=== PATIENT | male | born 1940 | race Caucasian/White ===

== ENCOUNTER 2025-02-05 20:29 | Inpatient (IN) | payer BC ==
[~2025-02-05] VITALS: Ht 177.8 cm; Wt 73.0 kg
[2025-02-05 20:52] LABS: BASOPHILS # (AUTO) 0.1 X10'3 (0-0.2); BASOPHILS % (AUTO) 0.9 % (0-1); EOSINOPHILS # (AUTO) 0.1 X10'3 (0-0.9); EOSINOPHILS % (AUTO) 0.7 % (0-6); HEMATOCRIT 31.5 % (42.0-52.0); HEMOGLOBIN 10.6 g/dl (14.0-17.9); LYMPHOCYTES # (AUTO) 1.4 X10'3 (1.1-4.8); LYMPHOCYTES % (AUTO) 9.6 % (21-51); MEAN CORPUSCULAR HEMOGLOBIN 30.9 PG (27.0-31.0); MEAN CORPUSCULAR HGB CONC 33.7 g/dL (33.0-36.5); MEAN CORPUSCULAR VOLUME 91.7 FL (78-98); MEAN PLATELET VOLUME 8.1 FL (7.4-10.4); MONOCYTES # (AUTO) 1.3 X10'3 (0-0.9); MONOCYTES % (AUTO) 9.2 % (2-12); NEUTROPHILS # (AUTO) 11.2 X10'3 (1.8-7.7); NEUTROPHILS % (AUTO) 79.6 % (42-75); PLATELET COUNT 296 X10'3 (140-440); RED BLOOD COUNT 3.44 X10'6 (4.70-6.10); RED CELL DISTRIBUTION WIDTH 19.1 % (11.5-14.5); WHITE BLOOD COUNT 14.1 X10'3 (4.5-11.0)
[2025-02-05 21:01] LABS: ALANINE AMINOTRANSFERASE 16 U/L (12-78); ALBUMIN 3.5 G/DL (3.4-5.0); ALBUMIN/GLOBULIN RATIO 0.9 (1.1-1.5); ALKALINE PHOSPHATASE 111 IU/L (46-116); ANION GAP 9 (8-16); ASPARTATE AMINO TRANSFERASE 13 U/L (10-37); BILIRUBIN,TOTAL 1.1 MG/DL (0.1-1.0); BLOOD UREA NITROGEN 15 MG/DL (7-18); BUN/CREATININE RATIO 18.5 (10.0-20.0); CALCIUM 8.7 MG/DL (8.5-10.1); CHLORIDE 102 MMOL/L (99-107); CREATININE 0.81 MG/DL (0.60-1.10); GLUCOSE 136 MG/DL (70-104); POTASSIUM 4.2 MMOL/L (3.5-5.1); SODIUM 139 MMOL/L (135-145); TOTAL CARBON DIOXIDE 28.2 MMOL/L (24-32); TOTAL PROTEIN 7.3 G/DL (6.4-8.2); eCRCL 70 ML/MIN; eGFR > 90 ML/MIN
[2025-02-05 21:08] LABS: PRO BRAIN NATRIURETIC PEPTIDE 1409 PG/ML (0-450)
[2025-02-05 21:11] LABS: ANISOCYTOSIS 3+; MICROCYTOSIS 1+; PLATELET ESTIMATE DECREASED; POIKILOCYTOSIS 1+
--- NOTE | 2025-02-05 22:03 | RADIOLOGY REPORT ---
CHEST RADIOGRAPH Indication: CP Technique: Single frontal view of the chest was obtained Comparison: None FINDINGS: Lines and Tubes: None Lungs: No focal consolidation. Pleura: No effusion. No pneumothorax. Cardiomediastinal contours: Unremarkable Bones: No acute osseous abnormality. IMPRESSION: No acute cardiopulmonary disease.
[2025-02-05] MEDS ORDERED: AMLO10TA13 PO (22:15)
[2025-02-05] MEDS ORDERED: METF-438 PO (22:15)
[2025-02-05] MEDS ORDERED: ATOR40TA72 PO (22:15)
[2025-02-05] MEDS ORDERED: LINA5TAB4 PO (22:54)
[2025-02-05] MEDS ORDERED: GLIM4TAB7 PO (22:56)
[2025-02-05] MEDS ORDERED: ASPI-1265 PO (22:57)
[2025-02-05] MEDS ORDERED: AZIL1TAB3 PO (22:58)
[2025-02-05] MEDS ORDERED: NEBI10TA10 PO (22:59)
--- NOTE | 2025-02-06 01:25 | Physician Documentation ---
History of Present Illness ~ Chief Complaint: See Chief Complaint Stated Complaint: TRANSFER Time Seen by MD: 01:24 Mode of Arrival: EMS HPI Patient presents to the emergency room for evaluation of generalized weakness. He was transferred from [facility] where he was found to be dipping into the low 30s regarding his heart rate and it was felt that this was the caus e for his generalized weakness. Dr. Lima, gas plant technician, at [facility] recommended discontinuing the beta-jasmyne however he has been off his beta- jasmyne for this past week secondary to not feeling his medications are doing any good therefore she recommended to be transferred to our facility for possible pacemaker placement. He does have a history of atrial fibrillation but it was not on blood thinners as he has a watchman device. 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 Patient has a history of prior stroke with residual but he feels like he had may have gotten worse the past few days and this is why CTA was performed. Lexiscan performed in September of 2023 was unremarkable and showed an ejection fraction of 74% Medication Reconciliation Allergies: Coded Allergies: No Known Allergies (Unverified , 02/05/25) Scheduled Amlodipine Besylate (Amlodipine Besylate), 1 TAB PO DAILY, (Reported) Aspirin (Aspirin), 1 TAB PO DAILY, (Reported) Atorvastatin Calcium (Atorvastatin Calcium), 1 TAB PO DAILY, (Reported) Azilsartan Med/Chlorthalidone (Edarbyclor 40-12.5 mg Tablet), 1 TAB PO DAILY, (Reported) Glimepiride* (Amaryl*), 2 TAB PO DAILY, (Reported) Linagliptin (Tradjenta), 1 TAB PO DAILY, (Reported) Metformin HCl (Metformin HCl), 1 TAB PO BID, (Reported) Nebivolol HCl (Bystolic), 1 TAB PO DAILY, (Reported) Review of Systems ROS All review of systems negative except as per HPI Physical Exam Vital Signs: Temperature: 98.9, Source: Oral, Heart Rate: 63, Respiratory Rate: 14, BP: 187/68, Pulse Oximetry: 96, Weight: 73.000 Oxygen Flow Rate: 0 Physical Exam General: Patient is awake, alert, oriented x4 in no acute distress and well appearing.~ Head: Normocephalic and atraumatic. Eyes: Conjunctival normal. EOMI. PERRL. ENT: Mucous membranes moist. Neck: Supple, trachea is midline. Chest: Clear to auscultation bilaterally without rales, rhonchi, or wheezes. There is no accessory muscle use or retractions. Cardiac: Heart rate 70 and regular without murmurs, gallops, or rubs. Abd: Soft, nondistended, nontender, with normoactive bowel sounds. No guarding, rebound, or rigidity. Progress Results/Orders Results/Orders Orders - DARIN BRADLEY MD Chest,Single View (02/05/25 20:34) Monitor (02/05/25 20:34) Saline Lock (02/05/25 20:34) Oxygen (02/05/25 20:34) Electrocardiogram (02/05/25 20:34) Page Hospitalist (02/06/25 01:38) Fill Out Med Reconciliation (02/06/25 01:38) Completed Orders - DARIN BRADLEY MD Chest,Single View (02/05/25 20:34) Cbc/Diff (02/05/25 20:34) PBNP (02/05/25 20:34) CMP (02/05/25 20:34) Hs Troponin I W Calculations (02/05/25 20:34) Hs Troponin I W Calculations (02/05/25 22:34) Hs Troponin I W Calculations (02/05/25 23:34) Vital Signs 02/05/25 02/05/25 02/05/25 02/05/25 20:46 21:27 22:20 22:47 Temp 98.9 Pulse 62 66 63 Resp 16 16 14 B/P (MAP) 206/76 199/70 (113) 187/68 (107) Pulse Ox 95 98 96 O2 Flow Rate 0 0 0 02/06/25 01:00 Pulse 63 Resp 18 B/P (MAP) 178/67 (104) Pulse Ox 96 O2 Flow Rate 0 Laboratory Tests Test 02/05/25 20:41 02/05/25 22:35 02/05/25 23:26 White Blood Count 14.1 H Red Blood Count 3.44 L Hemoglobin 10.6 L Hematocrit 31.5 L Mean Corpuscular Volume 91.7 Mean Corpuscular Hemoglobin 30.9 Mean Corpuscular Hemoglobin Concent 33.7 Red Cell Distribution Width 19.1 H Platelet Count 296 Mean Platelet Volume 8.1 Neutrophils (%) (Auto) 79.6 H Lymphocytes (%) (Auto) 9.6 L Monocytes (%) (Auto) 9.2 Eosinophils (%) (Auto) 0.7 Basophils (%) (Auto) 0.9 Neutrophils # (Auto) 11.2 H Lymphocytes # (Auto) 1.4 Monocytes # (Auto) 1.3 H Eosinophils # (Auto) 0.1 Basophils # (Auto) 0.1 CBC Comment Platelet Estimate Decreased Red Blood Cell Morphology Perf Poikilocytosis 1+ Basophilic Stippling Anisocytosis 3+ Microcytosis 1+ Sodium Level 139 Potassium Level 4.2 Chloride Level 102 Carbon Dioxide Level 28.2 Anion Gap 9 Blood Urea Nitrogen 15 Creatinine 0.81 Estimated GFR/1.73 m2 > 90 BUN/Creatinine Ratio 18.5 Glucose Level 136 H Calcium Level 8.7 Total Bilirubin 1.1 H Aspartate Amino Transf (AST/SGOT) 13 Alanine Aminotransferase (ALT/SGPT) 16 Alkaline Phosphatase 111 Troponin I High Sensitivity 103 *H 86 *H 88 *H Pro-B-Type Natriuretic Peptide 1409 H Total Protein 7.3 Albumin 3.5 Globulin 3.8 Albumin/Globulin Ratio 0.9 L Chemistry Comments Troponin I High Sens Percent Delta 16 2 Troponin I Hi Sens Absolute Change -17 2 EKG/XRAY/CT/US/VASC/MRI EKG : Additional Comment EKG interpreted by myself shows time of 2035, rate 65, junctional rhythm, no ST changes Chest X-Ray : Additional Comments Exam: CHEST,SINGLE VIEW CHEST RADIOGRAPH Indication: CP Technique: Single frontal view of the chest was obtained Comparison: None FINDINGS: Lines and Tubes: None Lungs: No focal consolidation. Pleura: No effusion. No pneumothorax. Cardiomediastinal contours: Unremarkable Bones: No acute osseous abnormality. IMPRESSION: No acute cardiopulmonary disease. Medical Decision Making Findings Patient presents to the emergency room for evaluation of possible pacemaker placement sent from [facility]. Differentials include but are not limited to first-degree block, second-degree block, third-degree block, cardiac arrhythmia, medication side effect therefore emergent labs ordered. Slight elevation of patient's troponin however he denies any chest pain. We will admit for further investigation and possible pacemaker placement with cardiologic consultation. Departure Admitted to Inpatient Unit: yes, to hospitalist Impression: Primary Impression: Symptomatic bradycardia Condition: Guarded Referrals: NO PRIMARY CARE PROVIDER (PCP) Critical Care Note Total Time (mins): 45 Critical Care Note The very real possibility of a deterioration of this patient's condition required the highest level of my preparedness for sudden, emergent intervention. I provided critical care services, which included medication orders, frequent reevaluations of the patient's condition and response to treatment, ordering and reviewing test results, and discussing the case with various consultants. Excludes time spent performing separately billable procedures. The critical care time associated with the care of the patient was 45 minutes not counting procedures Signature Scribe Signature: No scribe Attestation: The note accurately reflects work and decisions made by me.Darin Bradley MD 02/06/25 01:37 DARIN BRADLEY MD February 06, 2025 01:25
[2025-02-06] MEDS ORDERED: potassium Cl 20 mEq SR tablet PO PRN ×2 (02:45)
[2025-02-06] MEDS ORDERED: potassium Cl 40MEQ/1/2NS 520ml 520 ML IV PRN (02:45)
[2025-02-06] MEDS ORDERED: mag hydrox/Alum hydrox/simeth 30ml oral suspension PO PRN (02:45)
[2025-02-06] MEDS ORDERED: ondansetron/PF 4mg/2ml inj IV PRN (02:45)
[2025-02-06] MEDS ORDERED: acetaminophen 325mg tablet PO PRN (02:45)
[2025-02-06] MEDS ORDERED: magnesium Cl slow-release 64mg tablet PO PRN (02:45)
[2025-02-06] MEDS ORDERED: magnesium sulf-water 4G/100mL 100 ML IV PRN (02:45)
[2025-02-06] MEDS ORDERED: magnesium hydroxide 30ml (MOM) UD suspension PO PRN (02:45)
[2025-02-06] MEDS ORDERED: magnesium sulf-water 2g/50mL 50 ML IV PRN (02:45)
--- NOTE | 2025-02-06 02:58 | HISTORY AND PHYSICAL-Residence ---
History & Physical Providers to CC Resident Creating Document: ALISIA BAXTER, RES ~ History of Present Illness Reason for Admit\Complaint: Bradycardia History of Present Illness The patient is an 84-year-old male with past medical history of CAD, stroke, AFib with Watchman, hypertension, diabetes, hyperlipidemia, was transferred from [facility]. He went to the ED at [facility] for generalized weakness. The patient felt generally weak, lightheaded and dizzy this morning. He had these symptoms for about a week. He did not fall, hit his head or lose consciousness. Denied fevers, cough, chest pain, shortness of breath, palpitations, nausea, vomiting, diarrhea, constipation, abdominal pain, burning micturition. The patient stopped taking his medications around the time the symptoms began as he felt they were not really helping him. He has residual left-sided weakness from TIA/CVA in 2011, 2015 and 2019. But has been feeling increasingly weak on his left side since last three days to a week. 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 The right vertebral artery is dominant and patent with minimal atherosclerotic changes Atherosclerotic changes of arch and cervical carotids No evidence of significant stenosis or vessel occlusion CT head without contrast: Cerebral volume loss with white matter microvascular changes seen with aging and old right thalamic lacunar infarct. No acute intracranial abnormality. X-ray chest: No focal acute process in the lung mei. Carotid ultrasound, 09/2023: Right ICA less than 50% stenosis and left ICA 50- 79% stenosis Lexiscan, 09/2023: Unremarkable study with calculated EF of 74% Course in the hospital: The EKG showed sinus bradycardia with as low as 32. Normal blood pressure. Initial imaging and lab work done which did not show any acute abnormalities. Crawler Crane Operator, Dr. Lima recommended transfer to [facility] for the requirement of pacemaker placement. Allergies: Coded Allergies: No Known Allergies (Unverified , 02/05/25) Home Medications Home Medications Active Reported Bystolic (Nebivolol HCl) 10 Mg Tablet 1 Tab PO DAILY 30 Days Edarbyclor 40-12.5 mg Tablet (Azilsartan Med/Chlorthalidone) 40 Mg-12.5 Mg Tablet 1 Tab PO DAILY 30 Days Aspirin 81 Mg Tab.chew 1 Tab PO DAILY 30 Days Amaryl* (Glimepiride) 4 Mg Tablet 2 Tab PO DAILY 30 Days Tradjenta (Linagliptin) 5 Mg Tablet 1 Tab PO DAILY Amlodipine Besylate 10 Mg Tablet 1 Tab PO DAILY Atorvastatin Calcium 40 Mg Tablet 1 Tab PO DAILY Metformin HCl 1,000 Mg Tablet 1 Tab PO BID Past Medical History Past Medical History Atrial fibrillation s/p watchman procedure (2021) because of recurrent GI bleed Hypertension Diabetes mellitus History of TIA/CVA in 2011, 2015 and 2019 CAD s/p stenting in 2012 Past Surgical History Surgical History Comment Watchman procedure, 08/2022 TURP 2019 Cardiac catheterization with stenting of ROENTGENOLOGY TEACHER in 2012 Past Social History Social History Comment Patient lives in his house with his girlfriend. Ambulates using a cane. Quit smoking 40 years ago. Occasionally drinks alcohol. Denies recreational drug abuse. ROS ROS Reviewed in full. Negative except for pertinent positives in HPI. Exam Vitals: Vital Signs Date Time Temp Pulse Resp B/P (MAP) Pulse Ox O2 Delivery O2 Flow Rate FiO2 02/06/25 01:00 63 18 178/67 (104) 96 0 02/05/25 20:46 98.9 General: Elderly male, alert and oriented, tremulous, not in acute distress Head: Normocephalic with an atraumatic Eyes: Pupils- 3mm, reacting to light, conjunctiva- anicteric Nose and throat: No polyps, septum- normal, no mucosal ulcers Neck: Supple, no lymphadenopathy, no carotid bruit Respiratory: No use of accessory muscles of respiration, Bilateral normal vesiscular breath sounds heard. No wheeze, rhochi or creps Cardiac: S1-S2 heard, rhythm regular, no gallop/murmur Abdomen: non distended, no tenderness, no organomegaly, bowel sounds - heard Extremities: no clubbing, no pedal edema, no deformities, peripheral pulses - 2+ Skin: warm and dry, no rash, no purpura Diagnostic Data Last Recorded Lab Results: 02/05/25204002/05/252040 Advance Care Planning Advanced Care plannin - 30 Minutes (Patient requested full code) Additional Plan An 84-year-old male with past medical history of hypertension, diabetes mellitus, CAD, stroke, AFib, hyperlipidemia, was transferred from [facility] for requirement of pacemaker placement. Plan: Symptomatic bradycardia As per reports, his heart rate at [facility] was in 30s. EKG here shows junctional rhythm with heart rate in 60s. Continue telemetry monitoring. Hold home beta jasmyne. Consider cardiology consultation for possible pacemaker placement. Follow up with urine toxicology screen. TSH within normal limits. Left-sided weakness CT head, CTA head and neck did not show any acute abnormalities. Fall precautions. Neuro checks q.4h. Follow up with MRI head. Continue aspirin and atorvastatin. Hypertensive emergency Medication noncompliance Blood pressure at admission was 206/76 mmHg. Continue home amlodipine 10 mg daily, azilsartan/chlorthalidone 40/12.5 mg daily. Hold nebivolol 10 mg daily. Hyperlipidemia Continue atorvastatin 40 mg daily. History of stroke History of CAD s/p ROENTGENOLOGY TEACHER stenting Continue aspirin 81 mg daily. Diabetes mellitus Follow up with HB A1c. Starting the patient on hyperglycemia/hypoglycemia protocol. Paroxysmal atrial fibrillation Hold nebivolol. Currently in junctional rhythm. Patient underwent watchman's procedure because of recurrent GI bleeds. Chronic anemia HB 10.6 which is chronic. Follow up with iron studies. Code Status: Full code as requested by patient DVT Prophylaxis: SCDs Analgesia/Sedation: Acetaminophen Lines/Tubes: PIV Nutrition: NPO for possible pacemaker placement PT: Ordered Disposition: We will admit the patient into medical hernandez. Continue telemetry monitoring. Cardiology consultation pending. Alisia Baxter MD Internal Medicine Resident PGY-1 [facility] Addendum #1 Neuro: The pt has a history of CVA -Monitor for delirium #2 CV: The pt has a history of CAD, atrial fibrillation with Watchman device, bradycardia, and hypertension. - restart norvasc 5 -Continue ASA - Lipitor Pt with intermittent bradycardia, obtain EKG to evaluate for heart block, sinus corine, or junctional rhythm -Monitor for hemodynamic instability; keep atropine and consider pacing if unstable -Hold rate-slowing agents due to bradycardia -For HTN, continue home BP medications if hemodynamically stable afib, CHADS-2 Score, 5 patient has Watchman device , HR 60s #3 Pulm: -Promote incentive spirometry use -Maintain O2 saturation >92% #4 GI: -Advance diet as tolerated with primary approval #5 Renal: -Monitor for acute kidney injury (RIYA) -Replete electrolytes as needed #6 ID: -Monitor for signs of infection #7 Endo: The pt has a history of diabetes and hyperlipidemia. -Start insulin sliding scale to maintain serum glucose 150-180 mg/dL -Continue Lantus and Lispro for diabetes management -Continue Lipitor; monitor lipid profile for hyperlipidemia management #8 Heme/Onc: -Monitor for bleeding and blood clots -Maintain Hgb >7 and platelets >10 #9 PPx: -Consider chemical DVT prophylaxis I spent a total of greater than 60 minutes formulating critical care for this patient today. I saw this patient and completed a full visual exam via audio- visual HIPAA compliant technology. Date of Service: February 06, 2025 Billing Provider: LUI PEREZ MD, SOWMYA MANJARI, [facility] February 06, 2025 02:58 LUI PEREZ MD February 06, 2025 07:15
[2025-02-06 03:16] LABS: MAGNESIUM 1.5 MG/DL (1.5-2.4)
[2025-02-06 03:17] LABS: INR 1.1 INR
[2025-02-06 03:18] LABS: BILIRUBIN,URINE NEGATIVE (Neg); CLARITY,URINE CLEAR (Clear); COLOR,URINE YELLOW (Yellow); GLUCOSE, URINE NEGATIVE (Neg); KETONES,URINE NEGATIVE (Neg); LEUKOCYTE ESTERASE ,URINE NEGATIVE (Neg); OCCULT BLOOD,URINE TRACE-INTACT (Neg); PROTEIN,URINE 100 mg/dl (Neg); UROBILINOGEN,URINE 0.2 E.U/dL (0.2-1.0)
[2025-02-06] MEDS: PERFLUTREN PROTEIN-A MICROSPHR (Optison) 0.22 MG/ML 3ML VIAL IV ONE (03:20)
[2025-02-06 03:27] LABS: UA COLLECTION TYPE FOLEY CATH
[2025-02-06 03:28] LABS: HEMOGLOBIN A1C 7.3 % (4.5-6.2)
[2025-02-06 03:29] LABS: BACTERIA,URINE FEW /HPF (Neg); NITRITES, URINE NEGATIVE (Neg); RBC,URINE 0-2 /HPF (0-2); SQUAMOUS EPITHELIAL CELL,UR NONE SEEN /LPF (FEW); WBC,URINE NONE SEEN /HPF (0-4)
[2025-02-06] MEDS ORDERED: dextrose 50%-water 50ml dispensing syringe IV PRN ×2 (03:30)
[2025-02-06] MEDS ORDERED: glucagon, human recombinant 1mg kit SUBCUT PRN (03:30)
[2025-02-06] MEDS ORDERED: DEXTROSE 15 GM of carb/4 tabs (each vial/BOTTLE has 4 tablets) PO PRN ×2 (03:30)
[2025-02-06 03:33] LABS: URINE AMPHETAMINE SCREEN NEGATIVE (Neg); URINE BARBITUATE SCREEN NEGATIVE (Neg); URINE BENZODIAZEPINES SCREEN NEGATIVE (Neg); URINE CANNABINOID SCREEN NEGATIVE (Neg); URINE COCAINE SCREEN NEGATIVE (Neg); URINE METHADONE SCREEN NEGATIVE (Neg); URINE OPIATE SCREEN NEGATIVE (Neg); URINE PHENCYCLIDINE SCREEN NEGATIVE (Neg)
[2025-02-06] MEDS: amLODIPine 5mg tablet PO ONE ×2 (03:56→09:58)
[2025-02-06] MEDS: INSULIN LISPRO 100 UNIT/ML INSULN.PEN MULTI-DOSE SQ SCH ×2 (07:00→09:00)
--- NOTE | 2025-02-06 07:14 | ELECTROCARDIOGRAPH REPORT ---
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 Loco Smart Measurements Intervals [place] Rate: 65 P: 0 [place]: 0 QRS: 71 QRSD: 85 T: 24 QT: 391 QTc: 407 Interpretive Statements Junctional rhythm Abnormal R-wave progression, late transition Baseline wander in lead(s) V1 Electronically Signed On 02-06-2025 8:14:[address] Loco Smart Please click the below link to view image of tracing.
[2025-02-06 08:00] VITALS: BP 183/72; PULSE 66; RESP 16; TEMP 97.6; O2SAT 95
[2025-02-06] MEDS: docusate sod 100mg capsule PO SCH (08:00)
[2025-02-06] MEDS ORDERED: AZILSARTAN MED PO SCH (08:00)
[2025-02-06] MEDS ORDERED: CHLORTHALIDONE PO SCH (08:00)
[2025-02-06] MEDS: K and/or MAG REPLACEMENT MC SCH (08:00)
[2025-02-06] MEDS ORDERED: amLODIPine 5mg tablet PO SCH (08:00)
[2025-02-06 09:49] LABS: % IRON SATURATION 22 % (11-46); IRON 61 UG/DL (53-167); TOTAL IRON BINDING CAPACITY 276 UG/DL (259-388)
[2025-02-06] MEDS: aspirin 81mg tab.chew PO SCH (09:58)
[2025-02-06] MEDS: losartan 50mg tablet PO SCH (09:59)
[2025-02-06] MEDS: atorvastatin 20mg tablet PO SCH (09:59)
[2025-02-06 11:00] VITALS: BP 178/77; PULSE 64; RESP 17; TEMP 97.6; O2SAT 97
[2025-02-06] MEDS: chlorthalidone 25mg tablet PO SCH (11:33)
[2025-02-06] MEDS ORDERED: FLUO10CA65 PO (12:02)
[2025-02-06] MEDS ORDERED: OMEP40CA21 PO (12:02)
[2025-02-06 15:00] VITALS: BP 150/56; PULSE 67; RESP 20; TEMP 97.1; O2SAT 95
[2025-02-06 18:00] VITALS: BP 158/80; PULSE 62; RESP 20; TEMP 97.8; O2SAT 96
[2025-02-06 20:00] VITALS: RESP 20; O2SAT 98
[2025-02-06 22:00] VITALS: BP 154/72; PULSE 65; RESP 22; TEMP 98.2; O2SAT 97
[2025-02-06] MEDS: insulin glargine (Lantus) pen - multi-dose SQ SCH (22:53)
--- NOTE | 2025-02-06 22:59 | RADIOLOGY REPORT ---
PROCEDURE: MR MRI HEAD INDICATION: Left-sided weakness EXAM DATE: 02/06/2025 09:34 PM COMPARISON: CT brain 02/05/25 TECHNIQUE: MRI of the brain without intravenous contrast. FINDINGS: Diffusion weighted images of the brain demonstrate no evidence of acute infarction. There is an old lacunar infarct in the right thalamus and considerable chronic white matter microvasc ular ischemic changes. Mild chronic microvascular ischemic changes also noted in the vijay. There is no evidence of intracranial hemorrhage, extra-axial collection, mass effect, midline shift, herniation or hydrocephalus. Moderate ventricular and sulcal enlargement related to advanced cerebra l volume loss. Visualized paranasal sinuses and mastoid air cells are clear. Orbits appear unremarkable. Soft tissue s and osseous structures are unremarkable. IMPRESSION: No acute intracranial abnormality identified. Considerable chronic microvascular ischemic changes and advanced cerebral volume loss.
[2025-02-07] VITALS (8 sets, daily range): BP systolic 124–155; BP diastolic 64–78; PULSE 33–71; RESP 10–16; TEMP 97.3–98.1; O2SAT 93–96
[2025-02-07 06:20] LABS: BASOPHILS # (AUTO) 0.1 X10'3 (0-0.2); BASOPHILS % (AUTO) 1.6 % (0-1); EOSINOPHILS # (AUTO) 0.2 X10'3 (0-0.9); EOSINOPHILS % (AUTO) 2.2 % (0-6); HEMATOCRIT 31.1 % (42.0-52.0); HEMOGLOBIN 10.7 g/dl (14.0-17.9); LYMPHOCYTES # (AUTO) 1.2 X10'3 (1.1-4.8); MEAN CORPUSCULAR HEMOGLOBIN 31.3 PG (27.0-31.0); MEAN CORPUSCULAR HGB CONC 34.4 g/dL (33.0-36.5); MEAN CORPUSCULAR VOLUME 91.2 FL (78-98); MEAN PLATELET VOLUME 8.2 FL (7.4-10.4); MONOCYTES # (AUTO) 1.2 X10'3 (0-0.9); MONOCYTES % (AUTO) 15.1 % (2-12); NEUTROPHILS # (AUTO) 5.3 X10'3 (1.8-7.7); NEUTROPHILS % (AUTO) 66.1 % (42-75); PLATELET COUNT 289 X10'3 (140-440); RED BLOOD COUNT 3.41 X10'6 (4.70-6.10); RED CELL DISTRIBUTION WIDTH 19.1 % (11.5-14.5)
[2025-02-07 06:38] LABS: ALANINE AMINOTRANSFERASE 12 U/L (12-78); ALBUMIN 3.2 G/DL (3.4-5.0); ALBUMIN/GLOBULIN RATIO 0.9 (1.1-1.5); ALKALINE PHOSPHATASE 104 IU/L (46-116); ANION GAP 7 (8-16); ASPARTATE AMINO TRANSFERASE 16 U/L (10-37); BILIRUBIN,TOTAL 0.9 MG/DL (0.1-1.0); BLOOD UREA NITROGEN 23 MG/DL (7-18); CALCIUM 8.9 MG/DL (8.5-10.1); CHLORIDE 101 MMOL/L (99-107); CHOL/HDL RATIO 2.8 (0.00-4.99); CHOLESTEROL 122 MG/DL (0-200); CREATININE 0.92 MG/DL (0.60-1.10); GLUCOSE 168 MG/DL (70-104); HDL CHOLESTEROL 43 MG/DL (35-60); LDL CHOLESTEROL 69 MG/DL (50-100); MAGNESIUM 1.7 MG/DL (1.5-2.4); POTASSIUM 4.1 MMOL/L (3.5-5.1); SODIUM 137 MMOL/L (135-145); TOTAL CARBON DIOXIDE 28.7 MMOL/L (24-32); TOTAL PROTEIN 6.9 G/DL (6.4-8.2); TRIGLYCERIDES 70 MG/DL (20-135); eCRCL 62 ML/MIN; eGFR 78 ML/MIN
[2025-02-07 09:01] LABS: TOTAL CELLS COUNTED 100
[2025-02-07 09:03] LABS: ANISOCYTOSIS 2+; PLATELET ESTIMATE NORMAL
--- NOTE | 2025-02-07 09:10 | ELECTROCARDIOGRAPH REPORT ---
[facility] Test Date: 2025-02-07 Test Time: 09:09:46 Pat Name: YENNI AVILA Department: [address] Patient ID: [facility]-[id number] Room: [place] [address] A Gender: M Dentist: : 1940 Requested By: JONATHAN EVANS Order Number: [id number] Reading MD: Dr. RHYS Evans Measurements Intervals [place] Rate: 56 P: -77 [place]: 0 QRS: -19 QRSD: 87 T: 48 QT: 503 QTc: 486 Interpretive Statements Sinus or ectopic atrial bradycardia Second deg AVB, Mobitz I (Wenckebach) Consider left ventricular hypertrophy Nonspecific T abnormalities, lateral leads Borderline prolonged QT interval Electronically Signed On 02-07-2025 19:48:[address] RHYS Evans Please click the below link to view image of tracing.
[2025-02-07] MEDS ORDERED: fentaNYL/PF 50MCG/1 ML 2ML syringe ONE (16:12)
[2025-02-07] MEDS ORDERED: LIDOcaine 1% W/epiNEPHrine 1:100,000 20ml vial ONE (16:12)
[2025-02-07] MEDS ORDERED: iohexol 350 MG/ML 50ML vial IV ONE (16:13)
[2025-02-07] MEDS ORDERED: midazolam 1 mg/ML 2ml injection ONE (16:13)
[2025-02-07] MEDS ORDERED: ceFAZolin 1000mg inj ONE (16:13)
--- NOTE | 2025-02-07 17:25 | PROGRESS NOTE- Residence ---
Progress Note - Resident Providers to CC Resident Creating Document: TRISTEN MARTINEZ, EUGENIA CC: MAI CASTILLO MD ~ Antibiotic Timeout Antibiotic Ordered?: No Subjective Patient was examined at bedside today. Patient appears to be more clear in conscious, alert today. Patient's heart rate fell down to 30s and stayed about that range overnight. Patient was proposed the plan of pacemaker placement with the family and the patient made a combined decision to go for it. Objective Vital Signs Date Time Temp Pulse Resp B/P (MAP) Pulse Ox O2 Delivery O2 Flow Rate FiO2 02/07/25 15:00 97.9 57 16 128/65 (86) 96 Room Air 02/07/25 08:25 0.0 Result Diagram: 02/07/25 0556 02/07/25 0556 General: Alert, awake, oriented, not in acute distress HEENT: PERRLA, no icterus, pallor, lymphadenopathy, carotid bruit Respiratory system: Bilateral vesicular breath sounds heard, no adventitious breath sounds CVS: S1-S2 heard, no murmurs/rubs/gallop GI: Soft, nontender, no organomegaly, no guarding/rigidity, bowel sounds present Neuro: Left upper and lower extremity power: 2/5, gait could not be elicited, right upper and lower extremity power: 4/5, no sensory deficits, no bowel/bladder incontinence Extremities: No edema cyanosis clubbing/deformities Skin: Warm and dry Coagulation Studies Laboratory Tests Test 02/06/25 02:59 Prothrombin Time 11.0 SECONDS (9.0-12.0) INR International Normalized Ratio 1.1 INR Coagulation Comments Assessment Assessment An 84-year-old male with past medical history of hypertension, diabetes mellitus, CAD, stroke, AFib, hyperlipidemia, was transferred from [facility] for requirement of pacemaker placement. Plan Plan Symptomatic bradycardia Type I and II Mobitz AV block Cardiology consulted and recommended pacemaker placement Continue telemetry monitoring. Hold home beta jasmyne. Consider cardiology consultation for possible pacemaker placement. U tox negative Mildly elevated troponins probably type 2 IA Troponins downtrending Acute intervention required at this time Acute Left-sided weakness, CVA ruled out Most likely a subjective finding with no underlying etiology MRI head: chronic microvascular ischemic changes and cerebral volume loss Fall precautions. Neuro checks q.4h. Continue aspirin and atorvastatin. Hypertensive emergency Medication noncompliance Continue to monitor white Continue home amlodipine 10 mg daily, azilsartan/chlorthalidone 40/12.5 mg daily. Hold nebivolol 10 mg daily. Hyperlipidemia Continue atorvastatin 40 mg daily. History of stroke, left-sided weakness History of CAD s/p MECHANICAL RELIABILITY ENGINEER stenting Continue aspirin 81 mg daily. Diabetes mellitus A1c: [place] point Low-dose sliding scale insulin Paroxysmal atrial fibrillation Hold nebivolol. Currently bradycardic. Patient underwent watchman's procedure because of recurrent GI bleeds. Normochromic normocytic anemia HB 10.6 Normal ferritin, iron levels Code Status: DNR DVT Prophylaxis: SCDs Nutrition: NPO for possible pacemaker placement Disposition: Continue care in PCU floor, continue to monitor telemetry, pacemaker placement today Tristen Martinez MD Internal Medicine, PGY 1 Date of Service: February 07, 2025 Billing Provider: MAI CASTILLO MD, SIVA, RES February 07, 2025 17:25
[2025-02-07] MEDS ORDERED: diphenhydrAMINE 50 mg/ml inj ONE (17:46)
--- NOTE | 2025-02-07 18:43 | CARDIOLOGY REPORT ---
APPROVED REPORT EXAM: Comprehensive 2D, Doppler, and color-flow Echocardiogram. Patient Location: [facility] Blood Pressure: 179/74 mmHg Heart Rate: 62 bpm Rhythm: NSR Indications Arrhythmia CAD Diabetes Hypertension Watchamn device 2021 Hx stents 2012 Service Writer is BV. Ruth MD. No previous echo 2D Dimensions LA Diam4.6 cm IVSd 1.2 (0.7-1.1cm) LVDd 5.2 cm PWd 1.2 (0.7-1.1cm) IVSs 1.8 (0.8-1.2cm) LVDs 3.4 (2.5-4.0cm) Aortic Root(2D) 3.4 cm PWs 1.5 (0.8-1.2cm) LVOT Diameter 2.19 (1.8-2.4cm) LVEF(%) 63.6 (>50%) IVC 15.91 mmFS (%) 34.8 % SV 81.6 ml CO 5.1 L/min M-Mode Dimensions MV EPSS 1.1 (<0.5cm) Aortic Valve AoV Peak Darshan. 187.4 cm/s AoV VTI 40.1 cm AO Peak GR. 14.0 mmHg AO Mean GR. 8 mmHg LVOT VTI 24.40 cm LVOT Peak Darshan. 117.5 cm/s KHUSHI(VTI)/BSA 2.29 cm2/m2 KHUSHI (VTI) 2.29 cm2 Mitral Valve MV E Velocity 94.9 cm/s MV Peak Gr. 5 mmHg MV DECEL TIME 240 ms MV A Velocity 73.3 cm/s MV PHT 72 ms E/A Ratio 1.3 MVA (PHT) 3.06 cm2 MV KRqg591.2 cm/s TDI Medial E' P. V 6.98 cm/s E/Medial E' 13.6 Tricuspid Valve TR P. Velocity 289 cm/s RAP ESTIMATE 10 mmHg TR Peak Gr. 33 mmHg RVSP 43 mmHg Pulmonary Vein S1 Velocity 33.7 cm/s D2 Velocity 53.9 cm/s PVa Mpevjaxa53.1 cm/s PVa [id number] msec LEFT VENTRICLE LV is normal in size with mild concentric hypertrophy. Overall systolic function is normal. Overall L VEF is 65%. RIGHT VENTRICLE RV appears normal in size and contractility. RVSP is estimated at 43 mmHG. ATRIA Left atrium is moderately dilated. AORTIC VALVE Trileaflet AV appears sclerotic without stenosis. No insufficiency. MITRAL VALVE MV is thickened with mild annular calcification and no stenosis. Trace mitral regurgitation. TRICUSPID VALVE The tricuspid valve is normal in structure. Trace to mild tricuspid regurgitation PULMONIC VALVE The pulmonary valve is normal in structure. Trace pulmonic regurgitation. GREAT VESSELS The aortic root is normal in size. The IVC is normal in size and collapses >50% with inspiration. PERICARDIUM There is no pericardial effusion. Other Information Study Quality: Adequate Conclusion Overall LVEF is 65%. LV is normal in size with mild concentric hypertrophy. Overall systolic function is normal. RV appears normal in size and contractility. RVSP is estimated at 43 mmHG. Trileaflet AV appears sclerotic without stenosis. No insufficiency. MV is thickened with mild annular calcification and no stenosis. Trace mitral regurgitation. Trace to mild tricuspid regurgitation Trace pulmonic regurgitation. There is no pericardial effusion.
[2025-02-08] VITALS (9 sets, daily range): BP systolic 128–160; BP diastolic 56–69; PULSE 60–75; RESP 13–23; TEMP 97.1–97.8; O2SAT 93–98
[2025-02-08] MEDS ORDERED: HYDROcodone/acetaminophen 10/325mg tab PO PRN (01:25)
[2025-02-08] MEDS ORDERED: HYDROcodone/acetaminophen 5mg/325mg tablet PO PRN (01:25)
[2025-02-08] MEDS: vancomycin/NS 1 GM ADD-VANTAGE 250 ML IV ONE (01:33)
[2025-02-08 05:50] LABS: BASOPHILS # (AUTO) 0.1 X10'3 (0-0.2); BASOPHILS % (AUTO) 0.8 % (0-1); EOSINOPHILS # (AUTO) 0.2 X10'3 (0-0.9); HEMATOCRIT 31.2 % (42.0-52.0); HEMOGLOBIN 10.6 g/dl (14.0-17.9); LYMPHOCYTES % (AUTO) 9.1 % (21-51); MEAN CORPUSCULAR HEMOGLOBIN 30.8 PG (27.0-31.0); MEAN CORPUSCULAR HGB CONC 33.8 g/dL (33.0-36.5); MEAN CORPUSCULAR VOLUME 91.1 FL (78-98); MEAN PLATELET VOLUME 8.1 FL (7.4-10.4); MONOCYTES # (AUTO) 1.3 X10'3 (0-0.9); MONOCYTES % (AUTO) 11.5 % (2-12); NEUTROPHILS # (AUTO) 8.8 X10'3 (1.8-7.7); NEUTROPHILS % (AUTO) 76.6 % (42-75); PLATELET COUNT 279 X10'3 (140-440); RED BLOOD COUNT 3.43 X10'6 (4.70-6.10); RED CELL DISTRIBUTION WIDTH 19.6 % (11.5-14.5); WHITE BLOOD COUNT 11.4 X10'3 (4.5-11.0)
[2025-02-08 06:09] LABS: ALANINE AMINOTRANSFERASE 15 U/L (12-78); ALBUMIN 3.4 G/DL (3.4-5.0); ALBUMIN/GLOBULIN RATIO 0.9 (1.1-1.5); ALKALINE PHOSPHATASE 106 IU/L (46-116); ANION GAP 7 (8-16); ASPARTATE AMINO TRANSFERASE 21 U/L (10-37); BILIRUBIN,TOTAL 0.9 MG/DL (0.1-1.0); BLOOD UREA NITROGEN 30 MG/DL (7-18); BUN/CREATININE RATIO 26.1 (10.0-20.0); CALCIUM 8.6 MG/DL (8.5-10.1); CHLORIDE 101 MMOL/L (99-107); CREATININE 1.15 MG/DL (0.60-1.10); GLUCOSE 145 MG/DL (70-104); MAGNESIUM 1.7 MG/DL (1.5-2.4); POTASSIUM 4.1 MMOL/L (3.5-5.1); SODIUM 136 MMOL/L (135-145); TOTAL CARBON DIOXIDE 27.8 MMOL/L (24-32); eCRCL 49 ML/MIN; eGFR 61 ML/MIN
[2025-02-08] MEDS: sod chloride 0.9% 10ml flush syringe IV SCH (08:00)
--- NOTE | 2025-02-08 08:01 | ELECTROCARDIOGRAPH REPORT ---
[facility] Test Date: 2025-02-08 Test Time: 08:00:15 Pat Name: YENNI AVILA Department: [address] Patient ID: [id number] Room: [place] [address] A Gender: M Marine Reporter: ADALBERTO : 1940 Requested By: JONATHAN EVANS Order Number: [id number] Reading MD: Dr. RHYS Evans Measurements Intervals [place] Rate: 75 P: -36 VT: 196 QRS: 257 QRSD: 146 T: 64 QT: 464 QTc: 519 Interpretive Statements Ventricular-paced rhythm,? Underlying AFib No further analysis attempted due to paced rhythm Electronically Signed On 02-08-2025 19:05:[address] RHYS Evans Please click the below link to view image of tracing.
[2025-02-08] MEDS: pantoprazole 40mg Tablet.DR PO SCH (08:22)
[2025-02-08] MEDS: linagliptin 5mg tablet PO SCH (08:22)
[2025-02-08] MEDS: amLODIPine 5mg tablet PO SCH (08:24)
[2025-02-08] MEDS: metoprolol tartrate 50mg tablet PO SCH (08:24)
[2025-02-08] MEDS: FLUoxetine 10mg capsule PO SCH (08:26)
--- NOTE | 2025-02-08 12:22 | RADIOLOGY REPORT ---
EXAM: DI CHEST,SINGLE VIEW Indication: post pacemaker Technique: Single frontal view of the chest was obtained Comparison: DI CHEST,SINGLE VIEW on DOS: 02/05/25, XR CHEST 1 VIEW PORTABLE on DOS: 02/05/25 FINDINGS: Lines and Tubes: Cardiac pacemaker projects over the left chest wall. Lungs: No focal consolidation. Pleura: No effusion. No pneumothorax. Cardiomediastinal contours: Unremarkable. Atherosclerotic vascular calcifications of the thoracic ao rta are noted. Bones: No acute osseous abnormality. IMPRESSION: No acute cardiopulmonary disease.
--- NOTE | 2025-02-08 13:48 | ELECTROCARDIOGRAPH REPORT ---
[facility] Test Date: 2025-02-08 Test Time: 13:44:14 Pat Name: YENNI AVILA Department: [address] [id number] Room: [place] [address] A Gender: M Colorist Photography: Larissa Buchanan : 1940 Requested By: VIVIEN WALTERS Order Number: [id number] Reading MD: Dr. RHYS Miranda Measurements Intervals [place] Rate: 60 P: 0 UT: 0 QRS: -90 QRSD: 137 T: 84 QT: 469 QTc: 469 Interpretive Statements Afib/flutter and ventricular-paced rhythm No further analysis attempted due to paced rhythm Electronically Signed On 02-08-2025 19:06:[address] RHYS Miranda Please click the below link to view image of tracing.
--- NOTE | 2025-02-08 14:50 | PROGRESS NOTE- Residence ---
Progress Note - Resident Providers to CC Resident Creating Document: VIVIEN VILLANUEVA RES ~ Antibiotic Timeout Antibiotic Ordered?: Yes Subjective Patient was examined at bedside today. Undergone permanent pacemaker placement yesterday by Dr. Miranda, CXR - no pneumothorax. Patient was found to be delirious, PT recommended SNF, coordinated with family who agreed. He will be discharged to [place] [facility] tomorrow in a.m., papers signed. Objective Vital Signs Date Time Temp Pulse Resp B/P (MAP) Pulse Ox O2 Delivery O2 Flow Rate FiO2 02/08/25 12:48 60 02/08/25 11:00 97.5 16 140/56 (84) 96 Room Air 02/08/25 08:55 0.0 General: Alert, awake, oriented, not in acute distress HEENT: PERRLA, no icterus, pallor, lymphadenopathy, carotid bruit Respiratory system: Bilateral vesicular breath sounds heard, no adventitious breath sounds CVS: S1-S2 heard, no murmurs/rubs/gallop GI: Soft, nontender, no organomegaly, no guarding/rigidity, bowel sounds present Neuro: Left upper and lower extremity power: 2/5, gait could not be elicited, right upper and lower extremity power: 4/5, no sensory deficits, no bowel/bladder incontinence Extremities: No edema cyanosis clubbing/deformities Skin: Warm and dry Result Diagram: 02/08/25 0529 02/08/25 0529 Coagulation Studies Laboratory Tests Test 02/06/25 02:59 Prothrombin Time 11.0 SECONDS (9.0-12.0) INR International Normalized Ratio 1.1 INR Coagulation Comments Advance Care Planning Advanced Care plannin - 30 Minutes Assessment Assessment An 84-year-old male with past medical history of hypertension, diabetes mellitus, CAD, stroke, AFib, hyperlipidemia, was transferred from [facility] for requirement of pacemaker placement. 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 Hold home beta jasmyne. Consider cardiology consultation for possible pacemaker placement. U tox negative Undergone pacemaker placement yesterday, functioning well. No postop complications i.e. pneumothorax. Keflex 500 mg p.o. twice daily for seven days Acute Left-sided weakness, CVA ruled out MRI head: chronic microvascular ischemic changes and cerebral volume loss Fall precautions. Neuro checks q.4h. Continue aspirin and atorvastatin. Hypertensive emergency Medication noncompliance Continue to monitor white Continue home amlodipine 10 mg daily, azilsartan/chlorthalidone 40/12.5 mg daily. Nebivolol discontinued, metoprolol 50 mg p.o. twice daily initiated Elevated troponins: Type 2 DC/demand ischemia Hyperlipidemia Continue atorvastatin 40 mg daily. 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 Diabetes mellitus A1c: Seven point Low-dose sliding scale insulin Paroxysmal atrial fibrillation Hold nebivolol. Currently bradycardic. Patient underwent watchman's procedure because of recurrent GI bleeds. Normochromic normocytic anemia HB 10.6 Normal ferritin, iron levels Code Status: DNR DVT Prophylaxis: SCDs Nutrition: NPO for possible pacemaker placement Disposition: DC to [place] [facility] care tomorrow in a.m., paper signed. Vivien Villanueva Internal Medicine Resident Date of Service: February 08, 2025 Billing Provider: MAI CASTILLO MD,VIVIEN, RES February 08, 2025 14:50
--- NOTE | 2025-02-08 19:21 | PROGRESS NOTE ---
Progress Note Cardiology Providers to CC ~ Subjective Subjective Patient seen and examined. Patient alert answers questions. Apparently was confused last night. Pacemaker site looks good. Objective Result Diagram: 02/08/2552802/08/25528 Objective General: Normal body habitus, no acute distress, HEENT: Sclerae clear, PERRL, gums without lesions or bleeding, oropharynx clear without erythema or exudate. Neck: Supple without enlargement of the thyroid, or lymphadenopathy, Chest: Normal size and shape, no tenderness, nonlabored breathing, Breath sounds clear to auscultation. Heart: Regular in rate and rhythm, S1 and S2 normal, no S3-S4 or murmurs. Abdomen: Soft, nontender, no organomegaly, bowel sounds present. Extremities: No edema cyanosis or clubbing. Coagulation Studies Laboratory Tests Test 02/06/25 02:59 Prothrombin Time 11.0 SECONDS (9.0-12.0) INR International Normalized Ratio 1.1 INR Coagulation Comments Problem\Assessment\Plan Additional Plan 1. 84-year-old male with intermittent second-degree type 2 av block with symptomatic bradycardia: Underwent successful AV sequential pacemaker implantation on 09/09/2025 Pacemaker site looks good. Continue Keflex for one week. Staple removal in one week. Left shoulder sling for three days. Subsequently patient to follow up with primary testing specialist Dr. Jay,. 2. Paroxysmal atrial fibrillation: Prior history of Watchman procedure because of history of GI bleed and inability to tolerate anticoagulation. 3. History of CAD status post stenting: Continue aspirin and statins. 4. Diabetes, hypertension, hyperlipidemia: Counseled on coronary risk factor modification to keep LDL less than 55 mg, systolic blood pressure less than 130 mm of mercury and hemoglobin A1c less than 7%. 5. History of CVA. 6. Other comorbidities include: CKD, anemia, keps-lv-ujjbbrxk dementia . JONATHAN EVANS MD February 08, 2025 19:21
--- NOTE | 2025-02-09 00:17 | CARDIOLOGY REPORT ---
DATE OF SERVICE: 02/07/2025 DICTATING PHYSICIAN: RHYS Miranda MD PERMANENT PACEMAKER IMPLANTATION REPORT PRIMARY REQUESTING PHYSICIAN: Dr. Singh. PRIMARY DRUG SAFETY COORDINATOR: Dr. Jay. BARBERING INSTRUCTOR: RHYS Miranda MD INDICATION: The patient is an 84-year-old male with prior history of CAD, stroke, AFib, PAF, status post Watchman procedure, hypertension, diabetes, and hyperlipidemia, was transferred to [facility] ER because he had degenerative symptomatic bradycardia and heart rate of 40s. He became lightheaded, dizzy, and presyncopal. On monitoring here, the patient was found to have intermittent episodes of second-degree type 2 AV block, heart rate dropping into the 40s. After discussing risks, benefits and alternative options, the patient has decided to open at his time and ready to proceed with permanent pacemaker implantation. Risks, benefits and alternative options were discussed. Informed consent was obtained. PREOPERATIVE DIAGNOSES: Symptomatic bradycardia, second-degree type 2 AV block. POSTOPERATIVE DIAGNOSES: Symptomatic bradycardia, second-degree type 2 AV block. PROCEDURE TECHNIQUE: * Fluoroscopy. * AV sequential pacemaker implantation. * Conscious sedation of 60 minutes. SURGEON: RHYS Miranda MD BALANCE WHEEL FACER SURGEON: None. ANESTHESIOLOGIST: None. ANESTHESIA: Conscious local anesthesia. COMPLICATIONS: None. ESTIMATED BLOOD LOSS: Less than 5 mL. DESCRIPTION OF PROCEDURE: Left infraclavicular area was prepped and draped in the usual fashion. Two separate access were obtained in the subclavian vein. Two micropuncture wires positioned in the left subclavian. Two micropuncture wires were replaced with 2 J-wires. Horizontal incision was placed in left infraclavicular area. Using blunt dissection and electrocautery, subcutaneous pacemaker pocket was fashioned. External ends of the J-wires were retrieved into the pacemaker pocket. Two 7-Ukrainian sheaths were advanced over the J-wire. Through one of them, RV lead advanced to the RV apex, screwed into the RV apex. Appropriate pacing and sensory thresholds were placed, sheath removed a peel-away technique and anchored to the subcutaneous tissue with Ethibond. Through the second 7-Ukrainian sheath, right atrial lead was advanced to the right atrium. J-wire was formed, screwed into the right atrial appendage. Appropriate pacing and sensing thresholds obtained. Sheath removed in a peel-away technique and lead anchored to subcutaneous tissue with Ethibond. Pocket was irrigated with copious amount of antibiotic solution. Leads connected to the appropriate sockets of the pulse generator. Set screws were tightened. Tug test was performed. Pacemaker was suspended in the pacemaker pocket. Pocket closed with continuous 0 Vicryl, followed by interrupted 0 Vicryl, third layer of interrupted 2-0 Vicryl applied. The patient tolerated the procedure with no complications. DEVICE TECHNICAL INFORMATION: The device was a Medtronic MRI compatible Marjan MRI pacemaker, model #W3DR01, serial number [id number], Medtronic, 02/07/2025, left pectoral location. RIGHT ATRIAL LEAD: Model #4076, 52 cm long, serial #[id number]. Medtronic, 02/07/2025, right atrial appendage, P-wave amplitude 3 millivolts and 475 ohms of impedance, pacing threshold of 0.5 volts at 0.4 milliseconds. RV LEAD: Model #5076, 58 cm long, serial #[id number] , R-wave amplitude 9.5 mV ohms of impedance. Pacing was 0.5 to 0.4 milliseconds. IMPRESSION: An 84-year-old male with sick sinus syndrome with symptomatic bradycardia and second-degree AV block, underwent successful AV sequential pacemaker implantation with no complications. RHYS Miranda MD TID: [id number] RECEIPT: [id number] VERO/YOANDY/JALYN cc: Dr. Pierre ARREGUIN
[2025-02-09 02:00] VITALS: BP 147/61; PULSE 60; RESP 22; TEMP 96.9; O2SAT 98
[2025-02-09 06:00] VITALS: BP 156/71; PULSE 60; RESP 21; TEMP 96.9; O2SAT 97
[2025-02-09 06:48] LABS: BASOPHILS # (AUTO) 0.1 X10'3 (0-0.2); BASOPHILS % (AUTO) 0.9 % (0-1); EOSINOPHILS # (AUTO) 0.2 X10'3 (0-0.9); EOSINOPHILS % (AUTO) 1.5 % (0-6); HEMATOCRIT 33.3 % (42.0-52.0); HEMOGLOBIN 11.3 g/dl (14.0-17.9); LYMPHOCYTES # (AUTO) 1.2 X10'3 (1.1-4.8); LYMPHOCYTES % (AUTO) 9.4 % (21-51); MEAN CORPUSCULAR HEMOGLOBIN 31.2 PG (27.0-31.0); MEAN CORPUSCULAR VOLUME 91.5 FL (78-98); MEAN PLATELET VOLUME 8.8 FL (7.4-10.4); MONOCYTES # (AUTO) 2.1 X10'3 (0-0.9); MONOCYTES % (AUTO) 15.7 % (2-12); NEUTROPHILS # (AUTO) 9.6 X10'3 (1.8-7.7); NEUTROPHILS % (AUTO) 72.5 % (42-75); PLATELET COUNT 275 X10'3 (140-440); RED BLOOD COUNT 3.64 X10'6 (4.70-6.10); RED CELL DISTRIBUTION WIDTH 18.1 % (11.5-14.5); WHITE BLOOD COUNT 13.2 X10'3 (4.5-11.0)
[2025-02-09 07:05] LABS: ALANINE AMINOTRANSFERASE 14 U/L (12-78); ALBUMIN 3.2 G/DL (3.4-5.0); ALBUMIN/GLOBULIN RATIO 0.7 (1.1-1.5); ALKALINE PHOSPHATASE 107 IU/L (46-116); ANION GAP 9 (8-16); ASPARTATE AMINO TRANSFERASE 12 U/L (10-37); BILIRUBIN,TOTAL 1.2 MG/DL (0.1-1.0); BLOOD UREA NITROGEN 32 MG/DL (7-18); BUN/CREATININE RATIO 27.8 (10.0-20.0); CHLORIDE 102 MMOL/L (99-107); CREATININE 1.15 MG/DL (0.60-1.10); GLUCOSE 182 MG/DL (70-104); SODIUM 139 MMOL/L (135-145); TOTAL CARBON DIOXIDE 28.4 MMOL/L (24-32); TOTAL PROTEIN 7.5 G/DL (6.4-8.2); eCRCL 49 ML/MIN; eGFR 61 ML/MIN
[2025-02-09 08:55] VITALS: RESP 16; O2SAT 97
[2025-02-09] MEDS: cephalexin 250mg capsule PO SCH (09:59)
--- NOTE | 2025-02-09 10:19 | PROGRESS NOTE ---
Progress Note Cardiology Providers to CC ~ Subjective Subjective Patient seen and examined today. Daughter at bedside. Overall he is doing well. Pacemaker site looks good. Objective Result Diagram: 02/09/25 0616 02/09/25 0616 Objective General: Normal body habitus, no acute distress, HEENT: Sclerae clear, PERRL, gums without lesions or bleeding, oropharynx clear without erythema or exudate. Neck: Supple without enlargement of the thyroid, or lymphadenopathy, Chest: Normal size and shape, no tenderness, nonlabored breathing, Breath sounds clear to auscultation. Heart: Regular in rate and rhythm, S1 and S2 normal, no S3-S4 or murmurs. Abdomen: Soft, nontender, no organomegaly, bowel sounds present. Extremities: No edema cyanosis or clubbing. Coagulation Studies Laboratory Tests Test 02/06/25 02:59 Prothrombin Time 11.0 SECONDS (9.0-12.0) INR International Normalized Ratio 1.1 INR Coagulation Comments Problem\Assessment\Plan Additional Plan 1. 84-year-old male with intermittent second-degree type 2 av block with symptomatic bradycardia: Underwent successful AV sequential pacemaker implantation on 09/09/2025 Pacemaker site looks good. Continue Keflex for one week. Staple removal in one week. Left shoulder sling for three days. Subsequently patient to follow up with primary business services manager Dr. Jay,. 2. Paroxysmal atrial fibrillation: Prior history of Watchman procedure because of history of GI bleed and inability to tolerate anticoagulation. 3. History of CAD status post stenting: Continue aspirin and statins. 4. Diabetes, hypertension, hyperlipidemia: Counseled on coronary risk factor modification to keep LDL less than 55 mg, systolic blood pressure less than 130 mm of mercury and hemoglobin A1c less than 7%. 5. History of CVA. 6. Other comorbidities include: CKD, anemia, brup-qw-ubbuxkud dementia JONATHAN EVANS MD February 09, 2025 10:19
[2025-02-09 11:00] VITALS: BP 114/60; PULSE 60; RESP 21; TEMP 97.1; O2SAT 100
--- NOTE | 2025-02-09 18:16 | DISCHARGE SUMMARY-Residence ---
Discharge Summary Providers to CC Resident Creating Document: MINDATANISHATRISTEN DONALDSON, RES CC: HEMANT ASNCHEZ MD ~ Discharge Summary Admission Diagnosis: Symptomatic bradycardia Hospital Course DATE OF ADMISSION: 02/06/25 DATE OF DISCHARGE: 02/09/25 Discharge Diagnosis\Comment: Symptomatic bradycardia Type I and II Mobitz AV block Symptomatic bradycardia Type I and II Mobitz AV block Hypertensive emergency Medication noncompliance Hyperlipidemia Diabetes mellitus Paroxysmal AFib Normochromic normocytic Operations\Procedures: Pacemaker placement Consultants: Dr. Miranda (rn psych) Complications: None Condition on DC: Stable for transfer Discharge Summary: An 84-year-old male with multiple comorbidities presented to the ED as a t dorenefer from [facility] in in view of symptomatic bradycardia. Patient was admitted at [facility] in the morning due to having symptoms of generalized weakness, lightheadedness, dizziness. Patient had these symptoms for about a week binge he stopped taking any of the medications. On further investigations patient was found to have a heart rate of 30s that rem ained about the same requiring pacemaker placement. Therefore the patient was transferred to [facility] for pacemaker placement. Patient was held off all the beta blockers, tested for any beta jasmyne toxicity which was negative. Later, patient was continuously monitored over telemetry when his heart rates dropped down to the 30s with type 2 Mobitz AV block. Pacemaker was placed on 02/07/25. Patient was monitored for any other complications post pacemaker placement, confirmation of normal rhythm. Patient's other medical conditions were managed as per home medications. Patient also stated that he felt more weak which is a new finding compared to his residual left-sided upper and lower extremity weakness from prior strokes, therefore evaluation for any acute CVA was done which was negative. Therefore increased weakness would have been secondary to underlying bradycardia which could have been one of the presenting symptoms. Patient is hemodynamically stable for discharge. Examination at discharge: General: Alert, awake, oriented, not in acute distress HEENT: PERRLA, no icterus, pallor, lymphadenopathy, carotid bruit Respiratory system: Bilateral vesicular breath sounds heard, no adventitious breath sounds CVS: S1-S2 heard, no murmurs/rubs/gallop GI: Soft, nontender, no organomegaly, no guarding/rigidity, bowel sounds present Neuro: Left upper and lower extremity power: 2/5, gait could not be elicited, right upper and lower extremity power: 4/5, no sensory deficits, no waldo l/bladder incontinence Extremities: Insertion site is pacemaker does not have erythema, warmth, is healthy and healing. No edema cyanosis clubbing/deformities Skin: Warm and dry Labs at discharge: WBC: 13.2, H/H: 11.3/33.3, platelet count: 275 Sodium: 139, potassium: Four, BUN: 32, creatinine: 1.15 Imaging: Chest x-ray: No acute cardiopulmonary disease. Echo:Overall LVEF is 65%. LV is normal in size with mild concentric hypertrophy. Overall systolic function is normal. RV appears normal in size and contractility. RVSP is estimated at 43 mmHG. Head MRI: No acute intracranial abnormality identified. Considerable chronic cameron rovascular ischemic changes and advanced cerebral volume loss. Chest x-ray repeat: No acute cardiopulmonary disease. Discharge medications and recommendations have been faxed to the facility. *Problems/Diagnosis: (1) Symptomatic bradycardia Status: Acute Total Time Spent on D/C: > 30 Minutes Date of Service: February 09, 2025 Billing Provider: HEMANT SANCHEZ MD Common Visit Codes: 91269-OXV/OBS DISCH DAY >30min TRISTEN MARTINEZ, RES February 09, 2025 18:16 HEMANT SANCHEZ MD February 09, 2025 19:04
[2025-02-10] MEDS ORDERED: metFORMIN 500mg tablet PO SCH (07:00)
== END 2025-02-09 15:22 | DRG 242 ==
LOC: ER 20:30 → ED HOLD 02-06 02:48 → PCU 3S 02-06 07:43
PROVIDERS: ADMIT Internal Medicine Pulmonary Disease; ATTEND Family Medicine
PROC: 02H63JZ Insertion of Pacemaker Lead into Right Atrium, Percutaneous Approach (ICD-10-PCS; principal; 2025-02-07)
PROC: 02HK3JZ Insertion of Pacemaker Lead into Right Ventricle, Percutaneous Approach (ICD-10-PCS; 2025-02-07)
PROC: 0JH606Z Insertion of Pacemaker, Dual Chamber into Chest Subcutaneous Tissue and Fascia, Open Approach (ICD-10-PCS; 2025-02-07)
DX: I44.1 Atrioventricular block, second degree (principal); I21.A1 Myocardial infarction type 2; I16.1 Hypertensive emergency; I69.354 Hemiplegia and hemiparesis following cerebral infarction affecting left non-dominant side; N17.9 Acute kidney failure, unspecified; I48.0 Paroxysmal atrial fibrillation; E11.22 Type 2 diabetes mellitus with diabetic chronic kidney disease; Z66 Do not resuscitate; D64.9 Anemia, unspecified; F03.B0 Unspecified dementia, moderate, without behavioral disturbance, psychotic disturbance, mood disturbance, and anxiety; I12.9 Hypertensive chronic kidney disease with stage 1 through stage 4 chronic kidney disease, or unspecified chronic kidney disease; I25.10 Atherosclerotic heart disease of native coronary artery without angina pectoris; E78.5 Hyperlipidemia, unspecified; N18.9 Chronic kidney disease, unspecified; Z91.148 Patient's other noncompliance with medication regimen for other reason; Z88.8 Allergy status to other drugs, medicaments and biological substances; Z95.5 Presence of coronary angioplasty implant and graft
CPT/HCPCS: 33208; 36415; 70551; 71045; 80053; 80061; 80305; 81001; 82728; 82948; 83036; 83540; 83550; 83605; 83735; 83880; 84145; 84484; 85007; 85008; 85025; 85610; 87040; 87081; 93005; 93306; 96372; 97161; 97530; 99152; 99153; 99291; A4565; A6258; A6449; A6590; C1785; C1898; G0378; J0690; J1200; J1815; J2250; J3010; J3370; J3490; J7030; J7040; Q9967